=== PATIENT | female | born 1975 | race Caucasian/White ===

== ENCOUNTER → 2018-06-30 | Outpatient (CLI) | payer BC ==
[~2018-06-30] MED LIST: HOLD METFORMIN - RECEIVED CONTRAST 20 ML VIAL IV SCH
[2018-06-30] MEDS: NS 50 ML (IVPB) BAG IV ONE (13:35)
[2018-06-30] MEDS: CATHETER FLUSH 10 ML SYR IV PRN (13:38)
[2018-06-30] MEDS: IOHEXOL 350 MG/ML 100 ML (OMNIPAQUE 350) VIAL IV ONE (13:38)
--- NOTE | 2018-06-30 14:02 | Diagnostic Imaging Report ---
PROCEDURE: CT pelvis with contrast. TECHNIQUE: Oral and intravenous contrast were administered with pelvic CT performed. INDICATION: Right-sided ovarian cyst. Patient also has had pelvic pain for one year, increasing in severity. COMPARISON: No prior studies are available for comparison. FINDINGS: There appear to be stones within the gallbladder, only partially included on this study. The visualized small and large bowel loops appear to be normal in caliber. Trace free fluid in the pelvis is noted which may be physiologic. Unopacified bladder is unremarkable. Uterus is unremarkable. No definite adnexal mass is seen. No iliac or inguinal lymphadenopathy is detected. The bony structures are unremarkable. IMPRESSION: 1. Findings suggestive of cholelithiasis. 2. Otherwise, unremarkable CT of the pelvis. No definite adnexal mass is detected. If further evaluation of the ovaries is clinically needed, pelvic sonography could be performed. Dictated by: Dictated on workstation # [id number]
== END ==
LOC: RAD 12:58
PROVIDERS: ATTEND Obstetrics & Gynecology
DX: N83.201 Unspecified ovarian cyst, right side (principal)
CPT/HCPCS: 72193